=== PATIENT | female | born 1960 | race Hispanic/Latino ===

== ENCOUNTER 2019-12-20 15:43 | Emergency (ER) | payer OTHER ==
[2019-12-20] MEDS ORDERED: Acetaminophen 500 MG TAB ONE (16:41)
[2019-12-20] MEDS ORDERED: Ondansetron ODT 4 MG TAB ONE (16:42)
[2019-12-22 12:44] LABS: SARS-CoV-2 MS2 Positive; SARS-CoV-2 N Gene Positive; SARS-CoV-2 S Gene Positive; SARS-CoV-2 orf1ab Positive
== END 2019-12-20 17:00 | disposition home or self-care (01) ==
LOC: NAV ERS 15:43
DX: U07.1 COVID-19 (principal); R11.2 Nausea with vomiting, unspecified; I10 Essential (primary) hypertension; Z79.899 Other long term (current) drug therapy
CPT/HCPCS: 87635; 99283; Q0162; U0003

== ENCOUNTER 2019-12-25 16:15 | Emergency (ER) | payer OTHER ==
[2019-12-25] MEDS ORDERED: Ventolin HFA Inhaler 60 PUFF INHALER ONE (16:45)
[2019-12-25] MEDS ORDERED: Sodium Chloride 0.9% 1,000 ML ONE (16:45)
[2019-12-25] MEDS ORDERED: methylPREDNISolone Sod Succ/PF 125 MG/2 ML VIAL ONE (16:45)
[2019-12-25 17:00] LABS: #Lymphocytes 0.8 thou/uL (1.20-3.40); #Monocytes 0.3 thou/uL (0.11-0.59); #Neutrophils 4.5 thou/uL (1.40-6.50); %Basophils 0.3 % (0.0-1.0); %Eosinophils 0.2 % (0.0-10.0); %Lymphocytes 14.1 % (21.0-51.0); %Monocytes 5.8 % (0.0-10.0); %Neutrophils 79.5 % (42.0-75.0); Hemoglobin 13.1 g/dL (12.0-16.0); Mean Corpuscular HGB CONC 32.3 g/dL (32.0-36.0); Mean Corpuscular Hemoglobin 30.4 pg (27.0-31.0); Mean Corpuscular Volume 94.2 fL (78.0-98.0); Mean Platelet Volume 7.3 fL (7.4-10.4); Platelet Count 423 thou/uL (130-400); RBC Distribution Width 11.2 % (11.5-14.5); Red Blood Cell (RBC) Count 4.32 mill/uL (4.20-5.40); White Blood Cell (WBC) Count 5.6 thou/uL (4.8-10.8)
[2019-12-25 17:04] LABS: Base Excess-Venous -0.5 mmol/L (-2.0 to 3.0); Bicarbonate (HCO3v) 22.9 mmol/L (22.0-28.0); CO2 Tension (PvCO2) 33.4 mmHg (40.0-50.0); Calcium, Ionized 1.05 mmol/L (See Comments:); Chloride 102 mmol/L (98-107); Hemoglobin - Calc 13.7 g/dL (12.0-16.0); Potassium 3.2 mmol/L (3.5-5.1); Sodium 139 mmol/L (138-145); vO2 Saturation-calc 99.4 % (60.0-85.0)
[2019-12-25] MEDS ORDERED: Azithromycin 500 MG VIAL ONE (17:24)
[2019-12-25] MEDS ORDERED: Sodium Chloride 0.9% 250 ML 250 ML ONE (17:24)
[2019-12-25 17:35] LABS: ALT (SGPT) 40 U/L (8-55); AST (SGOT) 53 U/L (5-34); Albumin 3.7 g/dL (3.5-5.0); Alkaline Phosphatase 120 U/L (40-110); Anion Gap 21 mmol/L (10-20); BUN (Urea Nitrogen) 15 mg/dL (9.8-20.1); Bilirubin, Total 0.5 mg/dL (0.2-1.2); Calc. Creatinine Clearance 0 mL/min (70-130); Calcium 8.5 mg/dL (7.8-10.44); Carbon Dioxide 19 mmol/L (22-29); Chloride 102 mmol/L (98-107); Estimated GFR-MDRD Greater than 90; Globulin 3.6 g/dL (2.4-3.5); Glucose 113 mg/dL (70-105); Potassium 3.8 mmol/L (3.5-5.1); Protein, Total 7.3 g/dL (6.0-8.3); Sodium 138 mmol/L (136-145)
--- NOTE | 2019-12-25 17:43 | RAD ---
FRONTAL RADIOGRAPH CHEST: 12/25/19 COMPARISON: None. HISTORY: Dyspnea. FINDINGS: Course linear interstitial density in the perihilar regions and both lung bases noted with associated diffuse ground glass opacity. No pneumothorax or lobar consolidation. NO significant pleural effusio n. IMPRESSION: Extensive interstitial and alveolar opacity/ground glass disease. Findings are suspicious for possibl e multifocal infectious pneumonitis, including COVID-19. Pulmonary edema is a possibility. POS: [facility]
== END 2019-12-25 19:10 | disposition short-term general hospital (02) ==
LOC: NAV ERS 16:15
DX: U07.1 COVID-19 (principal); J12.89 Other viral pneumonia; I10 Essential (primary) hypertension; Z79.899 Other long term (current) drug therapy
CPT/HCPCS: 71045; 80053; 82330; 82803; 83605; 83880; 84484; 85025; 85379; 87040; 87149; 93005; 94760; 96361; 96365; 96375; J0456; J2930; J7050